=== PATIENT | female | born 1970 | race Caucasian/White ===

== ENCOUNTER → 2018-01-03 | Outpatient (CLI) | payer OTHER, MEDICAID ==
--- NOTE | 2018-01-03 17:41 | RADIOLOGY IMAGING REPORT ---
FACILITY: [facility] [place] PATIENT NAME: Shireen Sanchez : 1970 MR: [id number] V: [id number] EXAM DATE: ORDERING PHYSICIAN: LITZY CABRERA [place]CHN[place]: [place] [facility] [place]ireen [place] : 1970 Visit/Account:[id number] Date of Sevice: 01/03/2018 DEXA Scan Clinical history: Vitamin D deficiency, long-term current use of drugs therapy. Comparison: DEXA scan from 12/01/2010. LUMBAR SPINE: The bone mineral density (BMD) measured from L1-L4 correlates with a Z-score of -1 and a T-score of - 0.4 which is Normal as defined by the World Health Organization. The corresponding risk of fracture in the lumbar spine is Not increased compared with a young adult reference population. This value flores s increased by 2.2 % since the prior study. More than 5% change is considered significant. HIP: Bone mineral density (BMD) measured in the LEFT total hip region correlates with a Z-score 0.3 and a T-score of 0.5 which is normal as defined by the World Health Organization. The corresponding risk of fracture in the hip is Not i ncreased compared to a young adult reference population. This value has increase by 3.6 % since the p rior study. More than 5% change is considered significant. T score left femoral neck -0.5 Bone mineral density (BMD) measured in the Femoral Neck region measures 0.964 g/cm?. IMPRESSION: 1. Lumbar spine: Normal. There has been 2.2% increase in the bone mineral density since the previou s exam. 2. Left Total Hip: Normal. There has been 3.6% increase in the bone mineral density since the previ ous exam. 3. Femoral Neck: Bone Mineral Density is 0.964 g/cm? The next DEXA scan of this patient should include the following sites: L1-L4 and the left hip. FRAX? WHO Fracture Risk Assessment Tool link: <http://www.shef.ac.uk/FRAX/tool.jsp?locationValue=9> PLEASE NOTE: 1) The World Health Organization defines low BMD as follows: T-score Normal > -1 Osteopenia < -1 and > -2.5 Osteoporosis < -2.5 without fractures Established osteoporosis < -2.5 with fractures 2) In general, you may wish to consider: Diagnosis Treatment Follow-up DEXA Normal BMD Prevention 2-3 years Osteopenia Prevention/therapy 1-2 years Osteoporosis Therapy Yearly 3) Fracture risk estimated from the T-score is more accurate for vertebral fractures (often spontane ous) than for hip fractures. Report Dictated By: Silvia Wilson MD at 01/03/2018 5:35 PM Report E-Signed By: Silvia Wilson MD at 01/03/2018 5:36 PM WSN:[id number]
== END ==
LOC: RAD 00:52
PROVIDERS: ATTEND Nurse Practitioner Family
DX: E55.9 Vitamin D deficiency, unspecified (principal); Z79.899 Other long term (current) drug therapy; E11.9 Type 2 diabetes mellitus without complications; Z86.39 Personal history of other endocrine, nutritional and metabolic disease; R73.01 Impaired fasting glucose; R53.81 Other malaise; R53.83 Other fatigue; R94.5 Abnormal results of liver function studies; E66.9 Obesity, unspecified; E78.00 Pure hypercholesterolemia, unspecified
CPT/HCPCS: 36415; 77080; 82040; 82247; 82306; 82310; 82374; 82435; 82565; 82607; 82947; 83036; 84075; 84132; 84155; 84295; 84450; 84460; 84520

== ENCOUNTER → 2018-01-03 | Outpatient (REF) | payer OTHER, MEDICAID | LOC: ZZSENDIN 17:59 | PROVIDERS: ATTEND Nurse Practitioner Family | DX: E11.9 Type 2 diabetes mellitus without complications (principal); Z86.39 Personal history of other endocrine, nutritional and metabolic disease; R73.01 Impaired fasting glucose; R53.81 Other malaise; R94.5 Abnormal results of liver function studies; E66.9 Obesity, unspecified; E78.00 Pure hypercholesterolemia, unspecified; E55.9 Vitamin D deficiency, unspecified ==

== ENCOUNTER → 2018-12-08 | Outpatient (CLI) | payer OTHER, MEDICAID ==
[~2018-12-08] MED LIST: TRIMETHOPRIM/SULFA SUSP 5 ML ONE
--- NOTE | 2018-12-09 09:58 | RADIOLOGY IMAGING REPORT ---
FACILITY: [facility] PATIENT NAME: ADIA GAUTHIER : [id number] MR: [id number] V: [id number] EXAM DATE: ORDERING PHYSICIAN: LITZY CABRERA TECHNOLOGIST: Parisa Ly PROCEDURE:BILATERAL DIGITAL SCREENING MAMMOGRAM COMPARISON:None. INDICATIONS:BASELINE FINDINGS: The breasts are heterogeneously dense which can obscure small masses. There is no demonstration of malignant appearing mass, malignant appearing calcifications or other secondary sign of malignancy in either breast. DIAGNOSTIC CATEGORY 1--NEGATIVE. RECOMMENDATIONS: ROUTINE MAMMOGRAM AND CLINICAL EVALUATION. IMPRESSION: BIRADS 1: Negative. No significant abnormality is seen. Dictated by: Silvia Wilson M.D. on 12/08/2018 at 16:42 Transcribed by: JAZZ on 12/09/2018 at 8:55 Approved by: Sivlia Wilson M.D. on 12/09/2018 at 9:57 [facility]
== END ==
LOC: MAMO 00:18
PROVIDERS: ATTEND Nurse Practitioner Family
DX: Z12.31 Encounter for screening mammogram for malignant neoplasm of breast (principal)
CPT/HCPCS: 77063; 77067

== ENCOUNTER 2019-03-21 20:19 | Emergency (ER) | payer OTHER, MEDICAID ==
--- NOTE | 2019-03-21 20:39 | ER Report ---
History and Physical Time Seen By MD: 20:27 Hx. of Stated Complaint: PATIENT REPORTS SHE CUT HER RIGHT HAND ON LID OF A CAN THIS EVENING HPI/ROS CHIEF COMPLAINT: Laceration HISTORY OF PRESENT ILLNESS: This is a 48-year-old female presents to emergency department with her parents for a laceration to the base of her right thumb. Patient states that about an hour to 2 hours ago she was opening a can of green beans slipped and lacerated the thenar eminence. CMS intact. Bleeding controlled. No other concerns. REVIEW OF SYSTEMS: Respiratory: No cough, no dyspnea. Cardiovascular: No chest pain, no palpitations. Gastrointestinal: No vomiting, no abdominal pain. Musculoskeletal: No back pain. Integumentary: As above. Allergies: Coded Allergies: No Known Drug Allergies (Unverified , 03/21/19) Home Meds Reported Medications Carbamazepine (TEGRETOL) 200 Mg Tablet, 200 MG PO HS 03/21/19 Loratadine (CLARITIN) 5 Mg Tab.rapdis, 5 MG PO DAILY 03/21/19 Past Medical/Surgical History The patient has a past medical surgical history of developmentally delayed. Reviewed Nurses Notes: Yes Constitutional Vital Sign - Last 24 Hours 03/21/19 03/21/19 03/21/19 03/21/19 20:19 20:23 20:24 20:49 Temp 99.1 Pulse ??? 86 ??? Resp 17 B/P (MAP) 178/95 (122) 178/95 Pulse Ox 94 O2 Delivery Room Air 03/21/19 03/21/19 21:01 21:19 Pulse ??? B/P (MAP) 153/76 (101) Physical Exam General Appearance: The patient is alert, has no immediate need for airway protection and no current signs of toxicity. Eyes: Pupils equal and round no injection. Respiratory: Chest is non tender, lungs are clear to auscultation. Cardiac: regular rate and rhythm. Gastrointestinal: Abdomen is soft and non tender, no masses, bowel sounds normal. Musculoskeletal: Neck: Neck is supple and non tender. Extremities have full range of motion and are non tender. Skin: 1.5 cm laceration to the palmar side of the right hand on the thenar eminence. Bleeding controlled. CMS intact. DIFFERENTIAL DIAGNOSIS: After history and physical exam differential diagnosis was considered for laceration. Medical Decision Making ED Course/Re-evaluation ED Course The patient was admitted to room. A history and physical were obtained. Differential diagnoses were considered. The wound was irrigated and anesthetized and repaired as noted below. The patient had no other questions or concerns at this time and discharged home. Procedure: Laceration repair. Verbal consent was obtained from the patient. The 1.5 cm laceration on the palmar side of the right hand on the thenar eminence was anesthetized in the usual fashion. The wound was scrubbed, draped and explored to its base with a gloved finger. There were no deep structures involved. No tendon injury was i dentified. The wound was repaired with 4, 5-0 Prolene simple interrupted sutures. The wound repair was simple. The procedure was performed by myself. Decision to Disposition Date: Mar 21, 2019 Decision to Disposition Time: 20:57 Depart Departure Latest Vital Signs Vital Signs Date Time Temp Pulse Resp B/P (MAP) Pulse Ox O2 Delivery O2 Flow Rate FiO2 03/21/19 21:19 ??? 03/21/19 21:01 153/76 (101) 03/21/19 20:24 99.1 17 94 Room Air Impression: Primary Impression: Laceration of right hand Condition: Improved Disposition: HOME OR SELF-CARE Referrals: LITZY CABRERA (PCP) 1 Week Patient Instructions: Acute Wound Care (ED), Hand Laceration Additional Instructions: Keep wound dry for 48 hours. Follow up with your primary care provider in the next 7 days to have sutures removed. Monitor for signs of infection; redness, swelling, heat, discharge, increasing pain or red streaking. Take Tylenol or Ibuprofen as needed for pain. Return to the ER with any concerns. You may change dressing as needed. Problem Qualifiers Primary Impression: Laceration of right hand Encounter type: initial encounter Foreign body presence: without foreign body Qualified Codes: S61.411A - Laceration without foreign body of right hand, initial encounter [facility] [facility]-BC Mar 21, 2019 20:39
[2019-03-21] MEDS ORDERED: CARB-82 PO (20:40)
[2019-03-21] MEDS ORDERED: LORA5TAB16 PO (20:40)
[2019-03-21] MEDS ORDERED: DIPHTH/TETANUS/ACEL. PERTUSSIS IM ONLY ONE (20:45)
[2019-03-21 21:01] VITALS: BP 153/76
== END 2019-03-21 21:04 | disposition home or self-care (01) ==
LOC: ER 20:27
DX: S61.411A Laceration without foreign body of right hand, initial encounter (principal)
CPT/HCPCS: 99282

== ENCOUNTER → 2019-05-29 | Outpatient (CLI) | payer OTHER, MEDICAID ==
[~2019-05-29] MED LIST changes: +CARB-82 PO; +LORA5TAB16 PO; -TRIMETHOPRIM/SULFA SUSP 5 ML ONE
--- NOTE | 2019-05-29 12:28 | EKG ---
[place] [facility] [place] NAME: ADIA GAUTHIER : [id number] MR: [id number] V: [id number] EXAM DATE: ORDERING PHYSICIAN: DEEPAK VELASQUEZ TECHNOLOGIST: DISHA Parisi Reason : PRE-OP CARPAL TUNNEL Blood Pressure : / mmHG Vent. Rate : 084 BPM Atrial Rate : 084 BPM P-R Int : 142 ms QRS Dur : 094 ms QT Int : 380 ms P-R-T Axes : 065 073 054 degrees QTc Int : 449 ms Normal sinus rhythm Normal ECG No previous ECGs available Confirmed by JOSE SCHILLING ([id number]) on 05/29/2019 1:46:59 PM Referred By: EVA Confirmed By:JOSE SCHILLING
[2019-05-29 12:30] LABS: PLATELET COUNT, AUTOMATED 278 K/uL (150-450)
== END ==
LOC: LAB 11:48
PROVIDERS: ATTEND Anesthesiology
DX: Z01.812 Encounter for preprocedural laboratory examination (principal); Z01.810 Encounter for preprocedural cardiovascular examination; G56.02 Carpal tunnel syndrome, left upper limb
CPT/HCPCS: 36415; 85025; 93005